=== PATIENT | female | born 1980 | race Caucasian/White ===

== ENCOUNTER 2020-08-25 19:11 | Emergency (ER) | payer OTHER ==
[~2020-08-25] VITALS: Ht 165.1 cm; Wt 105.2 kg
[2020-08-25 19:16] VITALS: BP_SYST 106
--- NOTE | 2020-08-25 19:16 | NUR ---
Patient to ER bed 07 to gown for evaluation. Side rails up. Report given to VINCENT RYNA
--- NOTE | 2020-08-25 19:23 | NUR ---
ER at bedside examining patient.
--- NOTE | 2020-08-25 19:25 | NUR ---
Pt presents to the ER c/o abnormal H&H x today. Pt PCP requested for patient to go to ER for eval and possible blood transfusion. Pt reports feeling fatigue, dizziness and SOB at rest. Pt O2 at ER 100, no resp distress. Pt reports history of blood transfusion x 2 years ago for same probleM. Denies CP, fever, sick contacts.
[2020-08-25 19:53] LABS: BILIRUBIN,URINE NEGATIVE (NEGATIVE); BLOOD, URINE 3+ (NEGATIVE); CLARITY/URINE CLOUDY (CLEAR); COLOR,URINE RED (YELLOW); GLUCOSE,URINE NEGATIVE (NEGATIVE); KETONES,URINE TRACE (NEGATIVE); LEUKOCYTE ESTERASE ,URINE NEGATIVE (NEGATIVE); NITRITE, URINE NEGATIVE (NEGATIVE); PH,URINE 5.5 (5.0-8.0); PROTEIN URINE 2+ (NEGATIVE); UROBILINOGEN,URINE 0.2 (0.2-1.0)
[2020-08-25 19:58] LABS: BASOPHILS # (AUTO) 0.1 K/uL (0.0-0.2); EOSINOPHILS # (AUTO) 0.1 K/uL (0.0-0.4); MEAN CORPUSCULAR HEMOGLOBIN 17 pg (27-31); MONOCYTES # (AUTO) 0.5 K/uL (0.0-1.0); NEUTROPHILS # (AUTO) 6.6 K/uL (1.8-7.7); RED BLOOD CELL COUNT(AUTO) 4.43 MIL/uL (4.2-6.2)
[2020-08-25 20:03] LABS: BACTERIA,URINE MODERATE /HPF (None Seen); RBC,URINE >100 /HPF (0-3); WBC,URINE 0-3 /HPF (0-3)
[2020-08-25 20:04] LABS: MUCUS,URINE 1+ /LPF (None Seen)
[2020-08-25 20:05] LABS: BASOPHILS % (AUTO) 0.6 % (0.0-2.0); EOSINOPHILS % (AUTO) 0.7 % (0.0-4.0); HEMATOCRIT 25.7 % (36-48); LYMPHOCYTES # (AUTO) 1.9 K/uL (1.0-5.5); LYMPHOCYTES % (AUTO) 21.3 % (20.5-51.5); MEAN CORPUSCULAR HGB CONC 29 % (32-36); MEAN CORPUSCULAR VOLUME 58 fL (79.0-98.0); NEUTROPHILS % (AUTO) 72.4 % (40.0-70.0); PLATELET COUNT (AUTO) 409 K/uL (130-430); RED CELL DISTRIBUTION WIDTH 21.5 % (9.0-15.0); WHITE BLOOD COUNT (AUTO) 9.1 K/uL (4.8-10.8)
--- NOTE | 2020-08-25 20:24 | NUR ---
Pt taken to US, patient is ambulatory.
[2020-08-25 20:32] LABS: CALCIUM 8.3 mg/dL (8.4-11.0); CREATININE 0.74 mg/dL (0.55-1.30); POTASSIUM 3.4 mmol/L (3.5-5.1)
[2020-08-25 20:36] LABS: HEMOGLOBIN 7.5 g/dL (12.0-16.0)
[2020-08-25 20:38] LABS: ALBUMIN 3.4 g/dL (3.4-4.8); TOTAL BILIRUBIN 0.1 mg/dL (0.0-1.0)
--- NOTE | 2020-08-25 20:40 | NUR ---
Pt back from US, stable, ambulatory.
[2020-08-25 20:52] VITALS: BP_SYST 109
--- NOTE | 2020-08-25 20:53 | NUR ---
Patient given written and verbal discharge instructions and verbalizes understanding. ER MD discussed with patient the results and treatment provided. Patient in stable condition. Rx of PROVERA given. Patient educated on pain management and to follow up with PMD. Pain Scale 0/10 Opportunity for questions provided and answered. Medication side effect fact sheet provided.
== END 2020-08-25 20:24 | disposition home or self-care (01) ==
LOC: SED 19:11
DX: N93.8 Other specified abnormal uterine and vaginal bleeding (principal); I10 Essential (primary) hypertension; E11.9 Type 2 diabetes mellitus without complications
CPT/HCPCS: 36415; 76856-TC; 80053; 81000-TC; 81025; 85025; 86870; 86886; 86900; 86901; 87086; 99284